=== PATIENT | female | born 1990 | race Two or more races ===

== ENCOUNTER 2017-05-16 02:40 | Emergency (ER) | payer MEDICAID ==
[~2017-05-16] VITALS: Ht 160 cm; Wt 61.2 kg
[2017-05-16 03:05] LABS: URINE SOURCE CLEAN CATCH
[2017-05-16 03:07] LABS: URINE APPEARANCE TURBID; URINE BILIRUBIN NEG (NEG); URINE BLOOD 3+ (NEG); URINE COLOR YELLOW; URINE GLUCOSE NEG (NORM); URINE KETONE NEG (NEG); URINE LEUKOCYTE ESTERASE 3+ (NEG); URINE NITRATE POS (NEG); URINE PROTEIN 2+ (NEG); URINE SPECIFIC GRAVITY 1.015 (1.003-1.035); URINE UROBILINOGEN 0.2 MG/DL (NORM)
[2017-05-16 03:08] LABS: MICRO INDICATED? YES
[2017-05-16 03:09] LABS: CULTURE INDICATED? YES; URINE BACTERIA 1+ (NEG); URINE SQUAMOUS EPITHELIAL CELL FEW /[HPF]; URINE TRANSITIONAL EPI CELLS FEW /[HPF]; URINE WBC 100-200 /[HPF] (0-5)
[2017-05-17] MEDS ORDERED: HYDROCODON-ACE1 EAC7 PO (22:25)
[2017-05-17] MEDS ORDERED: CEFDINIR300 MG PO (22:25)
== END 2017-05-16 03:34 | disposition home or self-care (01) ==
LOC: SED 02:40
PROVIDERS: Emergency Medicine
DX: N39.0 Urinary tract infection, site not specified (principal)
CPT/HCPCS: 81003; 84703; 87086; 87088; 87186; 99284

== ENCOUNTER 2017-05-17 22:00 | Emergency (ER) | payer MEDICAID ==
[~2017-05-17] VITALS: Ht 160 cm; Wt 61.2 kg
--- NOTE | ~2017-05-17 | CT4 ---
[facility] A Service [facility] RADIOLOGY TEXT RESULTS PATIENT: KELLEY ARCOS LOCATION: SED : [birth year] UNIT #: [id number] AGE: [address]: Oh Law MD SEX: F ORDER DR: [id number] [address] [id number] [id number] MR#: [id number] Acc #: [id number] NAME: KELLEY ARCOS : 1990 SEX: F STUDY DATE/TIME: 05/18/2017 0:15 UNIT: SED ROOM: STUDY DESCRIPTION: CT Abd and Pelv Wo Cont Attending Physician: Oh Law M.D. Ordering Physician: Oh Law M.D. Primary Care Physician: Primary Care Physician No MEDICAL IMAGING REPORT This report is preliminary unless electronic signature is present. EXAM CT abdomen and pelvis without contrast INDICATION Pelvic pain since 05/15/[address] of the abdomen and pelvis. This CT exam was performed with one or more of the following radiation dose reduction techniques: automatic exposure control, adjustment of mA and/or kV according to patient size, and iterative reconstruction. COMPARISON None FINDINGS ABDOMEN WITHOUT CONTRAST: Included lung bases clear. The liver, spleen, kidneys, adrenal glands, pancreas and gallbladder unremarkable. Bowel loops are nondilated. Moderate colonic stool. Appendix normal. PELVIS WITHOUT CONTRAST: A 2.2 cm cyst in the right ovary. Small amount of free pelvic fluid. No aggressive-appearing bone lesion. IMPRESSION 1. A 2.2 cm cyst in the right ovary and a small amount of pelvic fluid. Findings within physiologic limits for the patient's age appropriate. 2. The appendix is normal. No acute findings. [facility] A Service [facility] RADIOLOGY TEXT RESULTS PATIENT: KELLEY ARCOS LOCATION: SED : 92 UNIT #: [id number] AGE: [address]: Oh Law MD SEX: F ORDER DR: Dictated by... Sebastián Patel M.D. THIS IS AN ELECTRONICALLY VERIFIED REPORT Sebastián Patel M.D. at 05/20/2017 9:58 PM LYNDOND/hoang TD: 05/18/2017 04:18 JOB #: [id number] MEDICAL IMAGING REPORT Page 1 of 1
[2017-05-17] MEDS ORDERED: CEFDINIR300 MG PO (22:25)
[2017-05-17] MEDS ORDERED: HYDROCODON-ACE1 EAC7 PO (22:25)
[2017-05-17 23:32] LABS: BASOPHIL% 0.4 % (0-2.5); EOSINOPHIL# 0.1 X10e3 (0-0.7); EOSINOPHIL% 1.2 % (0.0-7.0); HEMATOCRIT 35.4 % (35.0-45.0); HEMOGLOBIN 11.4 gm/dL (12.0-16.0); LYMPHOCYTE# 1.9 X10e3 (1.0-3.5); LYMPHOCYTE% 19.2 % (17.0-45.0); MEAN CELL VOLUME 77.6 FL (83-96); MEAN CORPUSCULAR HEMOGLOBIN 24.9 PG (28-34); MEAN CORPUSCULAR HGB CONC 32.2 g/dL (30-36); MEAN PLATELET VOLUME 9.4 FL (6.5-11.5); MONOCYTE# 1.3 X10e3 (0-1.0); MONOCYTE% 13.2 % (3.0-12.0); NEUTROPHIL# 6.4 X10e3 (1.5-7.1); PLATELET COUNT 203 X10e3 (140-420); RED BLOOD COUNT 4.56 X10e (3.90-5.30); RED CELL DISTRIBUTION WIDTH 17.4 % (11.0-15.5); WHITE BLOOD COUNT 9.7 X10e3 (4.0-10.5)
[2017-05-17 23:41] LABS: DIFF IND NO
[2017-05-17 23:48] LABS: ALBUMIN SERUM 3.7 g/dL (3.5-5.0); BILIRUBIN, DIRECT 0.1 mg/dL (0.0-0.2); BILIRUBIN,INDIRECT 0.3 mg/dL (0.0-0.9); BILIRUBIN,TOTAL 0.4 mg/dL (0.2-2.0); CALCIUM SERUM 8.4 mg/dL (8.4-10.2); CREATININE SERUM 0.7 mg/dL (0.6-1.4); GLOM FILT RATE Estimated 121.3 mL/min (>60); POTASSIUM 3.7 mmol/L (3.5-5.1); PROTEIN TOTAL SERUM 6.6 g/dL (6.0-8.3)
[2017-05-19 22:25] LABS: CHLAMYDIA TRACH Not Detected (Not Detected); N GONOR Not Detected (Not Detected)
== END 2017-05-18 01:08 | disposition home or self-care (01) ==
LOC: SED 22:00
PROVIDERS: Emergency Medicine
DX: N39.0 Urinary tract infection, site not specified (principal); N83.201 Unspecified ovarian cyst, right side; R21 Rash and other nonspecific skin eruption; Z88.0 Allergy status to penicillin; Z91.040 Latex allergy status
CPT/HCPCS: 36415; 74176; 80048; 80076; 85025; 87491; 87591; 87808; 87905; 96372; 99284; J1885